=== PATIENT | male | born 1980 | race Caucasian/White ===

== ENCOUNTER 2018-03-10 22:15 | Emergency (ER) | payer OTHER ==
[2018-03-10 22:21] VITALS: BP 111/75
[2018-03-10 22:33] LABS: ABSOLUTE BASOPHIL COUNT 0 /CUMM (0.0-0.2); ABSOLUTE EOSINOPHIL COUNT 0.1 /CUMM (0.0-0.7); ABSOLUTE GRANULOCYTE CT 2.4 /CUMM (1.4-6.5); ABSOLUTE LYMPH COUNT 1.3 /CUMM (1.2-3.4); ABSOLUTE MONOCYTE COUNT 0.6 /CUMM (0.10-0.60); BASOPHIL % 0.2 % (0.0-2.0); EOSINOPHIL % 2.3 % (0-5); GRANULOCYTE % 55.7 % (42.2-75.2); HEMATOCRIT 42.6 % (42-52); MEAN CORPUSCULAR HGB CONC 33.8 G/DL (33.0-37.0); MEAN CORPUSCULAR VOLUME 91.4 FL (80.0-94.0); MEAN PLATELET VOLUME 8.3 FL (7.4-10.4); PLATELET COUNT 217 /CUMM (130-400); RBC DISTRIBUTION WIDTH 12.6 % (11.5-14.5); RED BLOOD CELL CT 4.66 /CUMM (4.70-6.10); WHITE BLOOD CELL COUNT 4.3 /CUMM (4.8-10.8)
--- NOTE | 2018-03-10 22:34 | ED GENERAL ADULT ---
History of Present Illness General Chief Complaint: ETOH/Drug Related Complaint Stated Complaint: MARCELA DETOX, NEEDS SUBOXONE Source: patient, old records Exam Limitations: no limitations Vital Signs & Intake/Output Vital Signs & Intake/Output Vital Signs Date Time Temp Pulse Resp B/P B/P Pulse O2 O2 Flow FiO2 Mean Ox Delivery Rate 03/10 2221 96.6 64 20 111/75 98 Room Air Allergies Coded Allergies: No Known Allergies (08/28/17) Reconcile Medications No Known Home Medications Triage Note: PT MARCELA FROM [place]. IS ON MANAGER MEDICARE. WAS TOLD WOULD BE AT [facility] OVERNIGHT FOR COURT [place] OR COULD COME TO ED. PT STATES IF HE STAYED THERE, HE COULDN'T GET HIS 8-2 SL SUBOXONE "UNTIL THE AFTERNOON" "IF I CAME HERE, I CAN GO HOME, AND TAKE MY OWN IN THE AM" DENIES SI/HI. STATES DRINKS 8 BEERS DAILY, "BUT I'M TRYING TO STOP" NO ETOH SINCE YESTERDAY. TAKES SUBOXONE FOR CHRONIC PAIN. STATES DOES NOT WANT TO STAY FOR DETOX Triage Nurses Notes Reviewed? yes HPI: 37-year-old male with history of alcohol, previous opiate abuse on Suboxone and presents from the police station after he signed a promise to appear tomorrow in Court.. The patient states that he was offered to stay in [facility] or was already promised to appear which she took. The patient was told to take his Suboxone. Patient is not wishing to seek detox tonight he states the last time he drank alcohol was 3 days ago. No history of DTs or withdrawal seizures. He denies any other drug use today. He denies SI or HI. He is scheduled to go to rehabilitation in 2 weeks. He denies any chest pain shortness of breath abdominal pain nausea vomiting. (Horacio Michele) Past History Travel History Traveled to [place] past 21 day No Medical History Any Pertinent Medical History? see below for history Neurological: NONE EENT: NONE Cardiovascular: NONE Respiratory: NONE Gastrointestinal: NONE Hepatic: NONE Renal: NONE Musculoskeletal: NONE Psychiatric: opioid dependence - on suboxone By report, ADD Blood Disorders: NONE Cancer(s): NONE Surgical History Surgical History: none Psychosocial History Who do you live with Mother What is your primary language Chilean Tobacco Use: Current Daily Use Daily Tobacco Use Amount/Type: => 5 Cigarettes daily ETOH Use: alcoholic Illicit Drug Use: benzodiazepines Family History Hx Contributory? No (Horacio Michele) Review of Systems Review of Systems Constitutional: Reports: see HPI. Comments Review of systems: See HPI, All other systems negative. Constitutional, no chills no fever HEENT: no sore throat no congestion Cardiovascular: No chest pain , Skin: no rashes, no change in skin Respiratory: No dyspnea no cough GI: No nausea no vomiting, no diarrhea, Muscle skeletal: No joint pain, no back pain Neurologic: , no headache Heme/endocrine: No bruising Immunology: No lymphadenopathy (Horacio Michele) Physical Exam Physical Exam General Appearance: well developed/nourished, no apparent distress, alert, awake Comments: Well-developed well-nourished patient in no apparent distress. HEENT: Atraumatic, extraocular motion intact Neck: Supple, FROM Back: FROM Cardiovascular: Regular rate and rhythms no murmur Respiratory: No respiratory distress. Patient speaking in full complete sentences. Breath sounds clear to auscultation bilaterally: NO W/R/R Extremities: full range of motion Neuro: awake, alert, and oriented to person, place and time. There were no obvious focal neurologic abnormalities. Skin: Warm & dry;No appreciable rash on exposed skin Psych: Mood affect normal, normal memory normal judgment. Core Measures ACS in differential dx? No CVA/TIA Diagnosis: No Sepsis Present: No Sepsis Focused Exam Completed? No (Horacio Michele) Progress Differential Diagnoses I considered the following diagnoses in my evaluation of the patient: Alcohol abuse depression and anxiety or joint abnormality Plan of Care: Orders Procedure Date/time Status CBC WITHOUT DIFFERENTIAL 03/10 2220 Complete Laboratory Tests 03/10/182226: Sodium Cancelled, Potassium Cancelled, Chloride Cancelled, Carbon Dioxide Cancelled, Anion Gap Cancelled, BUN Cancelled, Creatinine Cancelled, BUN/ Creatinine Ratio Cancelled, Glucose Cancelled, Calcium Cancelled, Total Bilirubin Cancelled, AST Cancelled, ALT Cancelled, Alkaline Phosphatase Cancelled, Total Protein Cancelled, Albumin Cancelled, Globulin Cancelled, Albumin/Globulin Ratio Cancelled, CBC w Diff NO MAN DIFF REQ, RBC 4.66 L, MCV 91.4, MCH 31.0, MCHC 33.8, RDW 12.6, MPV 8.3, Gran % 55.7, Lymphocytes % 29.0, Monocytes % 12.8 H, Eosinophils % 2.3, Basophils % 0.2, Absolute Granulocytes 2.4, Absolute Lymphocytes 1.3, Absolute Monocytes 0.6, Absolute Eosinophils 0.1, Absolute Basophils 0, Serum Alcohol Cancelled 03/10/182219: Methadone Screen Cancelled, Barbiturate Screen Cancelled, Ur Phencyclidine Scrn Cancelled, Amphetamines Screen Cancelled, U Benzodiazepines Scrn Cancelled, Urine Cocaine Screen Cancelled, Urine Cannabis Screen Cancelled Patient is not on a police paper he is not intoxicated, he is not suicidal or homicidal he does not wish to seek detox these on a promise to appear tomorrow in Court the patient is requesting go home so he can get his own Suboxone. The patient does not want be here he is scheduled to go to rehabilitation in 2 weeks. Return precautions were discussed at length he feels comfortable with plan. Initial ED EKG: none (Horacio Michele) Departure Departure Time of Disposition: 2232 Disposition: HOME OR SELF CARE Condition: Stable Clinical Impression Primary Impression: ETOH abuse Referrals: Unknown Additional Instructions: Taking your medications as prescribed. Return to the emergency room anytime sooner if you wish to seek treatment, detox have thought someone harming herself or any other concerns. Departure Forms: Customer Survey General Discharge Information Prescriptions: Current Visit Scripts No Known Home Medications (Horacio Michele) PA/AIRPLANE COVERER Co-Sign Statement Statement: ED Attending supervision documentation- [] I saw and evaluated the patient. I have also reviewed all the pertinent lab results and diagnostic results. I agree with the findings and the plan of care as documented in the PA's/AIRPLANE COVERER's documentation. [x] I have reviewed the ED Record and agree with the PA's/AIRPLANE COVERER's documentation. [] Additions or exceptions (if any) to the PAs/AIRPLANE COVERER's note and plan are summarized below: [] (Ruperto Rollins DO) Critical Care Note Critical Care Note Critical Care Time: non-applicable (Horacio Michele)
== END 2018-03-10 22:45 ==
LOC: ERH 22:15
PROVIDERS: Physician Assistant Medical
DX: F10.10 Alcohol abuse, uncomplicated (principal); F11.20 Opioid dependence, uncomplicated; F17.210 Nicotine dependence, cigarettes, uncomplicated
CPT/HCPCS: 80307; G0480